=== PATIENT | female | born 1990 | race Caucasian/White ===

== ENCOUNTER 2016-03-03 07:39 | Emergency (ER) | payer SELFPAY ==
[~2016-03-03] VITALS: Ht 144.7 cm; Wt 57.2 kg
[~2016-03-03 07:39] MED LIST: BIRTH CONTROL; FERROUS SULFAT325 MG PO; FLEXERIL10 MG PO; KEFLEX500 MG PO; Motrin,Rufen800 MG PO; NKHM; NOVOLOG 701 UNIT/0.0 SC; OVRAL-21 50 MCG1 TAB PO; PERCOCET 325 MG1 TA2 PO; PRENATAL1 TA1 PO; PROCARDIA10 MG PO; PROZAC10 MG PO; XANAX0.5 MG PO
[2016-03-03 07:45] VITALS: BP 150/82
== END 2016-03-03 08:52 | disposition home or self-care (01) ==
LOC: ED 07:39
DX: Z32.02 Encounter for pregnancy test, result negative (principal)

== ENCOUNTER 2016-12-27 15:31 | Emergency (ER) | payer SELFPAY ==
[~2016-12-27] VITALS: Ht 144.7 cm; Wt 59.0 kg
[2016-12-27 15:54] VITALS: BP 132/78
[2016-12-27] MEDS ORDERED: AMOXICILLIN500 M2 PO (17:00)
== END 2016-12-27 17:39 | disposition home or self-care (01) ==
LOC: ED 15:31
DX: H66.91 Otitis media, unspecified, right ear (principal); J02.9 Acute pharyngitis, unspecified; F17.200 Nicotine dependence, unspecified, uncomplicated

== ENCOUNTER 2017-03-06 12:22 | Emergency (ER) | payer SELFPAY ==
[~2017-03-06] VITALS: Ht 144.7 cm; Wt 63.5 kg
[~2017-03-06 12:22] MED LIST changes: +AMOXICILLIN500 M2 PO
[2017-03-06 12:35] VITALS: BP 124/72
[2017-03-06] MEDS ORDERED: LIDEX 0.05% CRE15 GM T (12:48)
[2017-03-06] MEDS ORDERED: ATARAX,VISTARIL50 MG PO (12:48)
== END 2017-03-06 12:48 | disposition home or self-care (01) ==
LOC: ED 12:22
DX: L29.9 Pruritus, unspecified (principal); F17.200 Nicotine dependence, unspecified, uncomplicated; Z98.890 Other specified postprocedural states

== ENCOUNTER → 2020-04-23 | Outpatient (CLI) | payer OTHER ==
[~2020-04-23] MED LIST changes: +ATARAX,VISTARIL50 MG PO; +DOXYCYCLINE100 M3 PO; +LIDEX 0.05% CRE15 GM T
== END | disposition home or self-care (01) ==
LOC: US 13:18
PROVIDERS: ATTEND Nurse Practitioner Family
DX: N63.20 Unspecified lump in the left breast, unspecified quadrant (principal)

== ENCOUNTER 2020-05-31 05:35 | Emergency (ER) | payer OTHER ==
[~2020-05-31] VITALS: Ht 144.7 cm; Wt 67.1 kg
[~2020-05-31 05:35] MED LIST changes: -DOXYCYCLINE100 M3 PO
[2020-05-31 07:08] VITALS: BP 103/71
[2020-05-31] MEDS ORDERED: DOXYCYCLINE100 M3 PO (10:44)
== END 2020-05-31 10:42 | disposition home or self-care (01) ==
LOC: ED 05:35
DX: N61.1 Abscess of the breast and nipple (principal); F17.200 Nicotine dependence, unspecified, uncomplicated

== ENCOUNTER 2021-07-03 12:31 | Emergency (ER) | payer OTHER ==
[~2021-07-03] VITALS: Ht 144.7 cm; Wt 75.7 kg
[~2021-07-03 12:31] MED LIST changes: +DOXYCYCLINE100 M3 PO
[2021-07-03] MEDS ORDERED: BUSPAR5 MG PO (17:13)
[2021-07-03] MEDS ORDERED: VRAYLAR1.5 MG PO (17:13)
[2021-07-03 17:55] LABS: BASO % 0.4 % (0.0-1.0); EOS # 0.2 10*3/uL (0.0-0.4); EOS % 2.3 % (1.0-4.0); HEMATOCRIT 42.1 % (37.0-47.0); LYMPH # 2.8 10*3/uL (1.3-4.4); LYMPH % 28.6 % (27.0-41.0); MEAN CELL VOLUME 90.1 fl (81.0-99.0); MEAN CORPUSCULAR HGB CONC 33.3 g/dl (33.0-37.0); MEAN PLATELET VOLUME 9.6 fl (9.6-12.3); MONO # 0.7 10*3/uL (0.1-1.0); MONO % 7.4 % (3.0-9.0); NEUT % 60.7 % (47.0-73.0); PLATELET COUNT AUTOMATED 312 10*3/uL (130-400); RED BLOOD COUNT 4.67 10*6/uL (4.10-5.10); RED CELL DISTRI WIDTH 12.7 % (0-14.5); WHITE BLOOD COUNT 9.8 10*3/uL (4.8-10.8)
[2021-07-03 18:17] LABS: ALKALINE PHOSPHATASE 55 U/L (45-117); BUN 13 mg/dl (7-24); CHLORIDE 108 mmol/L (98-107); CREATININE 0.67 mg/dL (0.55-1.02); POTASSIUM 3.7 mmol/L (3.5-5.1); SGOT/AST 18 IU/L (3-35); SGPT/ALT 32 U/L (12-78); SODIUM 137 mmol/L (136-145); TOTAL PROTEIN 7.8 gm/dL (6.4-8.2)
[2021-07-03 19:47] VITALS: BP 124/76
[2021-07-03 20:12] LABS: BILIRUBIN Negative (Negative); BLOOD Negative (Negative); CLARITY Cloudy (Clear); COLOR Yellow (Yellow); GLUCOSE Negative (Negative); KETONE Negative (Negative); LEUKO ESTERASE 2+ (Negative); NITRITE Negative (Negative); PH 7.5 (4.5-8.0)
[2021-07-03 20:26] LABS: BACTERIA 2+; EPITHELIAL CELLS TNTC
[2021-07-03] MEDS ORDERED: CIPROFLOXACIN250 MG PO (20:43)
== END 2021-07-03 21:13 | disposition home or self-care (01) ==
LOC: ED 12:31
PROVIDERS: Nurse Practitioner
DX: N39.0 Urinary tract infection, site not specified (principal); R03.0 Elevated blood-pressure reading, without diagnosis of hypertension; R42 Dizziness and giddiness; F17.200 Nicotine dependence, unspecified, uncomplicated; Z79.899 Other long term (current) drug therapy; Z98.890 Other specified postprocedural states

== ENCOUNTER 2021-09-17 14:46 | Emergency (ER) | payer OTHER ==
[~2021-09-17 14:46] MED LIST changes: +BUSPAR5 MG PO; +CIPROFLOXACIN250 MG PO; +VRAYLAR1.5 MG PO
[2021-09-17 14:54] VITALS: BP 131/78
[2021-09-17 15:21] LABS: BILIRUBIN Negative (Negative); BLOOD 2+ (Negative); CLARITY Turbid (Clear); COLOR Yellow (Yellow); GLUCOSE Negative (Negative); KETONE Negative (Negative); LEUKO ESTERASE 3+ (Negative); NITRITE Negative (Negative); PH 6.5 (4.5-8.0); SPECIFIC GRAVITY 1.015 (1.001-1.030); UROBILINOGEN 0.2 E.U./dl (0.0-1.0)
[2021-09-17 15:32] LABS: BACTERIA 4+; EPITHELIAL CELLS TNTC; WBC TNTC wbc/hpf (0-5)
[2021-09-17] MEDS ORDERED: MACROBID100 M1 PO (16:18)
== END 2021-09-17 16:45 | disposition home or self-care (01) ==
LOC: ED 14:46
PROVIDERS: Emergency Medicine
DX: N39.0 Urinary tract infection, site not specified (principal); F17.200 Nicotine dependence, unspecified, uncomplicated; Z79.899 Other long term (current) drug therapy

== ENCOUNTER 2021-10-29 11:39 | Emergency (ER) | payer OTHER ==
[~2021-10-29] VITALS: Ht 144.7 cm; Wt 72.6 kg
[~2021-10-29 11:39] MED LIST changes: +MACROBID100 M1 PO
[2021-10-29 11:46] VITALS: BP 122/86
[2021-10-29] MEDS ORDERED: AMOX-CLAV 875-1 EACH PO (12:53)
[2021-10-29] MEDS ORDERED: NAPROXEN250 MG PO (12:53)
[2021-10-29] MEDS ORDERED: TYLENOL325 M1 PO (12:53)
== END 2021-10-29 13:19 | disposition home or self-care (01) ==
LOC: ED 11:39
DX: N61.0 Mastitis without abscess (principal); Z79.2 Long term (current) use of antibiotics; Z79.899 Other long term (current) drug therapy; Z98.890 Other specified postprocedural states

== ENCOUNTER 2021-10-30 02:54 | Emergency (ER) | payer OTHER ==
[~2021-10-30] VITALS: Ht 144.7 cm; Wt 71.2 kg
[~2021-10-30 02:54] MED LIST changes: +AMOX-CLAV 875-1 EACH PO; +NAPROXEN250 MG PO; +TYLENOL325 M1 PO
[2021-10-30 03:22] VITALS: BP 121/78
[2021-10-30 04:32] LABS: BASO % 0.3 % (0.0-1.0); EOS # 0.2 10*3/uL (0.0-0.4); EOS % 1.4 % (1.0-4.0); HEMATOCRIT 41.4 % (37.0-47.0); LYMPH # 3.1 10*3/uL (1.3-4.4); LYMPH % 26.5 % (27.0-41.0); MEAN CELL VOLUME 91.8 fl (81.0-99.0); MEAN CORPUSCULAR HGB 31.5 pg (27.0-31.0); MEAN CORPUSCULAR HGB CONC 34.3 g/dl (33.0-37.0); MEAN PLATELET VOLUME 9.9 fl (9.6-12.3); MONO # 0.9 10*3/uL (0.1-1.0); MONO % 7.5 % (3.0-9.0); NEUT # 7.5 10*3/uL (2.3-7.9); NEUT % 63.5 % (47.0-73.0); PLATELET COUNT AUTOMATED 294 10*3/uL (130-400); RED BLOOD COUNT 4.51 10*6/uL (4.10-5.10); RED CELL DISTRI WIDTH 12.5 % (0-14.5); WHITE BLOOD COUNT 11.8 10*3/uL (4.8-10.8)
[2021-10-30 04:58] LABS: ALKALINE PHOSPHATASE 69 U/L (45-117); BUN 7 mg/dl (7-24); CHLORIDE 107 mmol/L (98-107); POTASSIUM 3.8 mmol/L (3.5-5.1); SGOT/AST 25 IU/L (3-35); SGPT/ALT 36 U/L (12-78); SODIUM 137 mmol/L (136-145); TOTAL PROTEIN 7.9 gm/dL (6.4-8.2)
[2021-10-30 07:27] LABS: BILIRUBIN Negative (Negative); BLOOD Negative (Negative); CLARITY Cloudy (Clear); COLOR Yellow (Yellow); GLUCOSE Negative (Negative); KETONE Negative (Negative); LEUKO ESTERASE Negative (Negative); NITRITE Negative (Negative); UROBILINOGEN 0.2 E.U./dl (0.0-1.0)
[2021-10-30 07:51] LABS: BACTERIA 2+; EPITHELIAL CELLS 21-30; MUCOUS 1+; RBC 0-2 rbc/hpf (0-2); WBC 0-2 wbc/hpf (0-5)
== END 2021-10-30 08:24 | disposition home or self-care (01) ==
LOC: ED 02:54
PROVIDERS: Emergency Medicine
DX: R10.32 Left lower quadrant pain (principal); Z79.899 Other long term (current) drug therapy